=== PATIENT | male | born 1955 | race Caucasian/White ===

== ENCOUNTER 2019-02-22 12:31 | Inpatient (IN) | payer BC ==
[~2019-02-22] VITALS: Ht 182.9 cm; Wt 85.3 kg
[~2019-02-22 12:31] MED LIST: CEPHALEXIN500 M1 PO; HEALTH CARE AM325 M1 PO; SEPTRA DS 8001 TAB PO
[2019-05-03] VITALS (12 sets, daily range): BP systolic 101–143; BP diastolic 64–92; PULSE 60–97; TEMP 97.5–98.2
[2019-05-03] MEDS ORDERED: ADVIL200 MG PO (03:28)
[2019-05-03] MEDS ORDERED: TRICOR 48MG48 MG PO (03:28)
[2019-05-03] MEDS ORDERED: VOLTAREN 75 DR75 MG PO (03:29)
--- NOTE | 2019-05-03 11:50 | NUR ---
Lying in bed, awake and alert. Denies pain. TOÑITO bandage on left knee clean, dry, and intact. Tolerating PO fluids without difficulty. Patient denies further needs at this time.
--- NOTE | 2019-05-03 16:11 | NUR ---
Rates pain 5/10, describes pain as "arthritic like". Administered roxicodone 10mg PO per orders. Patient takes without difficulty. Explained that the medication may make him tired. Verbalizes understanding and denies further needs.
--- NOTE | 2019-05-03 18:36 | NUR ---
Up ambulating in halls with assist of two and use of walker.
--- NOTE | 2019-05-03 20:30 | NUR ---
Pt. sitting up in chair at this time. Pt. is A&OX3, assessment complete. INT to lt. forearm patent. Pt. reports pain at a 5 on pain scale. Dressing to lt. knee, CDI. Pt. denies further needs, call light within reach.
[2019-05-04 00:16] VITALS: BP 151/107; PULSE 102; TEMP 99.3
[2019-05-04 03:27] VITALS: BP 135/80; PULSE 82; TEMP 98.2
[2019-05-04 06:39] LABS: HEMATOCRIT 37.8 % (42.0-52.0); HEMOGLOBIN 13.1 g/dl (13.5-18.0)
--- NOTE | 2019-05-04 06:47 | NUR ---
Report from Ashutosh SAMANIEGO.
[2019-05-04 08:00] VITALS: BP 89/59; PULSE 73; TEMP 98.1
--- NOTE | 2019-05-04 08:19 | NUR ---
PT UP IN BED FOR BREAKFAST. DR GUZMÁN IN TO SEE PATEINT THIS AM. SEE COMUTER FOR NEW ORDERS. DRESSING CHANGE AFTER THERAPY THIS AM. PT IS EATING AND DRINKING WITH NO N/V.
--- NOTE | 2019-05-04 10:27 | NUR ---
[employer] CATHETER DISCONTINUED TIP INTACT PATIENT TOLERATED WELL. DRESSING CHANGE COMPLETE, SURGICAL WOUND CDI WITH WELL APPROIMATED EDGES STERI STRIPS INPLACE.
[2019-05-04 11:24] VITALS: BP 152/78; PULSE 78; TEMP 98
[2019-05-04 15:43] VITALS: BP 143/83; PULSE 93; TEMP 97.5
--- NOTE | 2019-05-04 17:07 | NUR ---
PT NON COMPLIANT WITH CALLING. HAS AMBULATED HALLS INDEPENDENTLY. DOES NOT TAKE SUGGESTIONS OR REQUESTS WELL. PAIN WELL CONTROLLED WITH PO MEDS.
--- NOTE | 2019-05-04 20:00 | NUR ---
Pt. laying in bed at this time. Pt. is A&OX3, assessment complete. INT to lt. wrist patent. Pt. reports pain at a 1 and denies need for pain medication at this time. Dressing to lt. knee CDI. Pt. denies further needs, call light within reach.
[2019-05-04 20:15] VITALS: BP 133/77; PULSE 96; TEMP 98.6
[2019-05-05 04:27] VITALS: BP 133/68; PULSE 99; TEMP 99
--- NOTE | 2019-05-05 05:11 | NUR ---
Pt. slept off and on through the night. Pt. remains A&OX3. INT to lt. wrist remains patent. Pt. denies further needs at this time.
[2019-05-05 06:44] LABS: HEMATOCRIT 37.8 % (42.0-52.0)
[2019-05-05 07:11] VITALS: BP 143/87; PULSE 91; TEMP 98.7
--- NOTE | 2019-05-05 08:44 | NUR ---
viscose department worker met with patient to discuss discharge plans. Patient plans to discharge home where he lives with his in [address]. Patient has a walker and plans to take outpatient therapy at the [facility]. Worker contacted patient's , Manuel #[phone], per patient's request and advised of planned discharge today at 3:00. Patient denies concerns of unmet needs upon discharge.
--- NOTE | 2019-05-05 08:47 | NUR ---
PT UP TO SHOWER WITH OT THIS AM. PT INDEPENDENT IN ROON. PAIN WELL CONTROLLED WITH PO PAIN MEDICATIONS. PLAN ON DISCHARGE LATER TODAY. DR. GUZMÁN ROUNDED ON PT THIS AM. SEE COMPUTER FOR ORDERS,
[2019-05-05] MEDS ORDERED: ASPI325T6 PO (08:49)
[2019-05-05] MEDS ORDERED: NORCO 325 MG-7.1 TAB PO (08:50)
[2019-05-05] MEDS ORDERED: TYLENOL 500MG500 MG PO (08:51)
[2019-05-05] MEDS ORDERED: ROXICODONE 55 MG/TAB PO (08:51)
[2019-05-05] MEDS ORDERED: COLACE 100100 MG/CAP PO (08:52)
--- NOTE | 2019-05-05 11:37 | NUR ---
Initial visit; Patient thanked [employer] for looking in on him and offering him God's blessings and wishing him a rapid recovery.
[2019-05-05 12:23] VITALS: BP 125/73; PULSE 84; TEMP 98.6
--- NOTE | 2019-05-05 15:15 | NUR ---
DISCHARGE INSTRUCTIONS REVIEWED WITH PT AND FAMILY, QUESTIONS SOLICITED AND ANSWERED. PT LEFT FLOOR AMBULATORY WITH SON AND STAFF.
== END 2019-05-05 15:17 | disposition home or self-care (01) | DRG 470 ==
LOC: JCC 05-03 05:19
PROVIDERS: ADMIT Orthopaedic Surgery
PROC: 0SRD0J9 Replacement of Left Knee Joint with Synthetic Substitute, Cemented, Open Approach (ICD-10-PCS; principal; 2019-05-03 07:30)
DX: M17.12 Unilateral primary osteoarthritis, left knee (principal); I10 Essential (primary) hypertension; Z87.891 Personal history of nicotine dependence; E78.00 Pure hypercholesterolemia, unspecified
CPT/HCPCS: A4314; A9284; C1776; J0690; J1100; J2250; J2405; J2704; J7030; J7120

== ENCOUNTER → 2019-04-28 | Outpatient (CLI) | payer BC ==
[~2019-04-28] MED LIST changes: +ADVIL200 MG PO; +ASPI325T6 PO; +COLACE 100100 MG/CAP PO; +NORCO 325 MG-7.1 TAB PO; +ROXICODONE 55 MG/TAB PO; +TRICOR 48MG48 MG PO; +TYLENOL 500MG500 MG PO; +VOLTAREN 75 DR75 MG PO
== END ==
LOC: COL.RAD 15:32
DX: Z01.811 Encounter for preprocedural respiratory examination (principal)